=== PATIENT | female | born 1965 | race Caucasian/White ===

== ENCOUNTER 2016-11-23 12:57 | Emergency (ER) | payer OTHER ==
[2016-11-23 15:58] VITALS: BP 128/69
== END 2016-11-23 15:58 | disposition home or self-care (01) ==
LOC: ED 12:57
DX: M54.5 Low back pain (principal)
CPT/HCPCS: 20552; J2001

== ENCOUNTER 2018-04-19 13:18 | Emergency (ER) | payer SELFPAY ==
[~2018-04-19] VITALS: Ht 157.5 cm; Wt 73.5 kg
[2018-04-19 13:27] VITALS: Ht 157.5 cm; Wt 73.5 kg
[2018-04-19 14:38] VITALS: BP 112/65
== END 2018-04-19 14:38 | disposition home or self-care (01) ==
LOC: ED 13:18
DX: G89.29 Other chronic pain (principal); G43.909 Migraine, unspecified, not intractable, without status migrainosus
CPT/HCPCS: J1885; J2765